=== PATIENT | female | born 1955 | race Caucasian/White ===

== ENCOUNTER 2017-05-20 18:22 | Emergency (ER) | payer OTHER ==
[2017-05-20 18:33] VITALS: BP 127/76
[2017-05-20] MEDS ORDERED: Benzonatate CAP* 100 MG PO ONE (19:21)
[2017-05-20] MEDS ORDERED: Amoxicillin/Clavulanate TAB* 875 MG PO ONE (19:21)
--- NOTE | 2017-05-20 19:27 | UC ---
Respiratory Complaint HPI - HPI Summary HPI Summary: 61 year old female with history of trigeminal nerve injury s/p surgical repair here with cough, eye irritation, and cough for the past one week. The patient reports symptoms one week ago started with rhinorrhea and productive cough. In the past one week, now she has sinus congestion and heaviness. Subjective fever but no n/v/d/ or any other complaints. - History of Current Complaint Chief Complaint: UCRespiratory Stated Complaint: EYE IRRITATION, AND COUGH Time Seen by Provider: 05/20/17 18:56 Hx Obtained From: Patient Onset/Duration: Sudden Onset Character: Cough: Productive Associated Signs And Symptoms: Positive: Chills, Nasal Congestion, Sinus Discomfort - Risk Factors Pulmonary Embolism Risk Factors: Negative - Allergies/Home Medications Allergies/Adverse Reactions: Allergies Allergy/AdvReac Type Severity Reaction Status Date / Time No Known Allergies Allergy Verified 05/20/17 18:33 Home Medications: Home Medications Acyclovir* [Zovirax 200 MG CAP*] 100 mg PO BID 05/20/17 [History Confirmed 05/20] Milnacipran(NF) [Savella(NF)] 3 tab PO BID 05/20/17 [History Confirmed 05/20/17] PMH/Surg Hx/FS Hx/Imm Hx - Surgical History Surgical History: Yes Surgery Procedure, Year, and Place: 2008 ENDOSCOPIC RT TRIGEMINAL NERVE,LAP DEEPTI,APPY, HYSTERECOMY,HERNIA REPAIR,T&A - Social History Alcohol Use: Occasionally Substance Use Type: None Smoking Status (MU): Never Smoked Tobacco Review of Systems Constitutional: Fever, Chills Respiratory: Cough Cardiovascular: Chest Pain Gastrointestinal: Negative Genitourinary: Negative Neurological: Headache All Other Systems Reviewed And Are Negative: Yes Physical Exam Triage Information Reviewed: Yes Appearance: Well-Appearing, No Pain Distress Vital Signs: Initial Vital Signs Temp 36.1 C 05/20/17 18:29 Pulse 109 05/20/17 18:29 Resp 12 05/20/17 18:29 BP 127/76 05/20/17 18:29 Pulse Ox 97 05/20/17 18:29 Eyes: Positive: Conjunctiva Clear - Right eye with crusty lesion but no redness , swelling ENT: Positive: Pharynx normal, Nasal congestion, Nasal drainage, Sinus tenderness Respiratory: Positive: Chest non-tender, Lungs clear, Normal breath sounds, No respiratory distress Cardiovascular: Positive: RRR Neurological: Positive: Alert UC Diagnostic Evaluation - Laboratory O2 Sat by Pulse Oximetry: 97 Respiratory Course/Dx - Course Course Of Treatment: Sinusitis - Differential Dx/Diagnosis Differential Diagnosis/HQI/PQRI: Laryngitis, Lower Resp Infection, Sinusitis Provider Diagnoses: sinusitis Discharge - Discharge Plan Condition: Good Disposition: HOME Prescriptions: Amoxicillin/Clavulanate TAB* [Augmentin TAB 875*] 875 mg PO BID #20 tab Benzonatate CAP* [Tessalon 100 MG CAP*] 100 mg PO TID PRN #20 cap PRN Reason: Cough Patient Education Materials: Sinusitis (ED) Forms: *Work Release Referrals: Den Vergara MD [Primary Care Provider] - Additional Instructions: If the right eye continues to crust in the next few days, go to your scheduling administrator.
== END 2017-05-20 19:51 | disposition home or self-care (01) ==
LOC: UCEAST 18:22
DX: J32.9 Chronic sinusitis, unspecified (principal)
CPT/HCPCS: 99212; A9270-GY; G0463